=== PATIENT | female | born 1965 | race Caucasian/White ===

== ENCOUNTER 2020-12-04 10:08 | Outpatient (CLI) | payer OTHER ==
--- NOTE | 2020-12-04 12:20 | CARDIAC PROCEDURE NOTE ---
DATE OF SERVICE: 12/04/2020 Physician: Zuleyma Amaya MD, [facility] INDICATION: Screening for cardiovascular disease, family history of ischemic heart disease. CARDIAC RISK FACTORS: Postmenopausal status, family history of heart disease. PROCEDURE: After signing informed consent, the patient underwent a modified Bib-protocol treadmill stress test. No cardiac imaging was ordered with this test. RESTING HEART RATE: 98. PEAK HEART RATE: 158 (96% predicted maximum heart rate for age). RESTING BLOOD PRESSURE: 126/79. PEAK BLOOD PRESSURE: 234/69. The patient exercised for 9 minutes on a modified-Bib protocol treadmill stress test. She achieved a peak heart rate of 158 (96% PMHR) and 4.6 METs. There was no chest pain. There was mild shortness of breath. She rated her perceived exertion at 15/20 on the Breann scale at peak. Oxygen saturation was 94%-98% on room air throughout the test. RESTING EKG: Normal sinus rhythm, right axis deviation, RSR' in V1 and V2 (these changes suggest cor pulmonale), also there is T-wave flattening present in leads II, III, aVF, and V3 through V6. EKG AT PEAK: No new ST-segment or T-wave changes develop with exercise. SUMMARY: 1. Abnormal resting EKG. 2. ST-segment and T-wave changes during exercise are inaccurate in the presence of an abnormal resting EKG. 3. Abnormal vital signs: Extreme hypertensive response to exercise develops, and the patient was tachycardic at rest at 98. (The patient stated she had 2 cups of coffee this morning and also takes no blood pressure medications). IMPRESSION: 1. Probably normal stress test regarding ischemia, however, baseline EKG abnormalities are present. 2. Hypertension noted; possible untreated HTN present versus she has poor aerobic exercise tolerance. RECOMMENDATIONS: 1. Consider pulmonary evaluation and/or sleep study, given the EKG findings that suggest cor pulmonale; and the patient stated she probably has sleep apnea and has never been tested. 2. Consider high blood pressure management. 3. All future stress tests should be ordered with cardiac imaging (Echo or nuclear), since she has an abnormal resting EKG. cc: Skyler Lui DO TD: 12/04/2020 12:14 [facility]
== END 2020-12-04 10:09 | disposition home or self-care (01) ==
LOC: DI 10:08
PROVIDERS: ATTEND Family Medicine
DX: Z13.6 Encounter for screening for cardiovascular disorders (principal); Z82.49 Family history of ischemic heart disease and other diseases of the circulatory system; R94.31 Abnormal electrocardiogram [ECG] [EKG]

== ENCOUNTER 2020-12-08 08:20 | Outpatient (CLI) | payer OTHER ==
--- NOTE | 2020-12-16 12:22 | Mammography Report ---
BILATERAL DIGITAL SCREENING MAMMOGRAM 3D/2D WITH EXAGGERATED CC: 12/08/2020 CLINICAL: Routine screening. Additional films were requested but not obtained. There are scattered fibroglandular elements in bot h breasts. Reporting delay due to awaiting outside images for comparison. There are benign masses with a circumscribed margin in both breasts. No significant masses, calcifications, or other findings are seen in either breast. IMPRESSION: BENIGN There is no mammographic evidence of malignancy. A 1 year screening mammogram is recommended. This exam was interpreted at Station ID: [id number]. NOTE: For mammograms, a report in lay terms will be sent to the patient. Approximately 15% of breast malignancies will not be visualized mammographically. In the management of a palpable breast mass, a negative mammogram must not discourage biopsy of a clinically suspicious lesion. Electronically Signed By: Scott stein/barbara:12/15/2020 12:16:47 ACR BI-RADS Category 2: Benign Finding(s) 3342F PARENCHYMAL PATTERN: (A) - The breast(s) demonstrate(s) scattered fibroglandular densities. BI-RADS CATEGORY: (2) - 2 RECOMMENDATION: (ANNUAL) - Recommend routine annual screening mammography. [id number] 1 year screening LATERALITY: (B)
== END 2020-12-08 08:21 | disposition home or self-care (01) ==
LOC: DI.S 08:20
PROVIDERS: ATTEND Family Medicine
DX: Z12.31 Encounter for screening mammogram for malignant neoplasm of breast (principal)

== ENCOUNTER 2020-12-18 09:20 | Outpatient (CLI) | payer OTHER | END 2020-12-18 09:21 | disposition home or self-care (01) | LOC: RT 09:20 | PROVIDERS: ATTEND Family Medicine | DX: I10 Essential (primary) hypertension (principal); R68.89 Other general symptoms and signs | CPT/HCPCS: 94010 ==

== ENCOUNTER 2020-12-23 13:01 | Outpatient (CLI) | payer OTHER ==
[2020-12-23 13:44] VITALS: BP 114/76
--- NOTE | 2020-12-23 13:44 | SLEEP CARE CONSULTATION ---
Information from patient questionnaire entered by Kerline Todd. I have reviewed and concur with the information entered by Kerline Tdod. This document represents the service I personally performed and the decisions made by me, Bharti Villanueva ARNP. History of Present Illness Service Date and Time: 12/23/2020 1301 Reason for Visit: New patient Chief Complaint: reports: Unrefreshed sleep, Snoring, Excessive daytime sleepiness, Observed pauses in breathing, Fatigue Date of Onset: Years Usual bedtime: 9-elsi Time it takes to fall asleep: I take 2 Tylenol PM to fall asleep Snores at night: Yes Observed to quit breathing while asleep: Yes Sleeps alone due to snoring: No Number of times waking at night: 1-2 Reasons for waking at night: reports: Snoring, Other (Pets). denies: Choking, Gasping for air Toss, Turn, or Twitch while sleeping: Yes Recalls having dreams: Yes Usually gets out of bed at: 5 AM Feels refreshed in the morning: No Morning headache: Yes (Varies;1-2 days a week lasting most of morning) Sleepy or fatigued during the day: Yes Ever fallen asleep while driving: No Takes day naps: Yes (2-3 times week for about 20 minutes to 1 hour or so) Dreams during day naps: Yes (sometimes) Prior sleep studies: No Additional HPI information: I had the pleasure of seeing ROSITA FLOWERS today regarding the possibility of her having a sleep disorder. Her current complaints are excessive daytime sleepiness, observed pauses in breathing, snoring, fatigue and unrefreshed sleep. She states she is always tired and has been snoring for years. Her has seen pauses in breathing when she is asleep. She has woken her self up snoring and some times woke up after snoring heavily with a catch in her throat. She denies gasping or choking in her sleep. She states she does occasionally gasp while awake for no apparent reason. She has tachycardia and her PCP has been sending her for tests to evaluate her for causes. She states she has already had a respiratory evaluation that was clear and is waiting to get a stress test for her heart. She states her is on a CPAP and she is familiar with CPAP therapy. Both of her parents snored but were never diagnosed with sleep apnea. 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 Patient is and lives in [place]. Have you smoked in the past 12 months: No Cigarettes per day (20/pack): 15 Years of smokin Quit date: 1993 Smoking Pack Years: 7.0 Alcohol use: Yes Alcohol amount and frequency: 1-2 drinks occasionally Caffeine use: Yes Caffeine amount and frequency: 2 cups coffee in the morning Family History Family Hx Sleep Apnea: Mother: Snoring, Father: Snoring Allergies and Home Medications Drug allergies reviewed: Yes (NKDA) Home medication list reviewed: Yes Allergy and home medication list: Effexor ER 150mg Lisinopril 10 mg Tagamet Vitamin D Flonase Review of Systems Weight gain over past 5 years: 25 Cardiovascular: reports: high blood pressure, irregular heart rate or pulse Gastrointestinal: reports: heartburn, diarrhea Psychiatric: reports: anxiety, depression Ear/Nose/Throat: reports: sinus problems, tonsillectomy, wisdom teeth removed Musculoskeletal: reports: back pain Immunologic: reports: allergies to food or environment (possibly hayfever) Physical Exam Blood Pressure: 114/76 Cuff size: wrist Heart Rate: 104 O2 Saturation: 96 Height: 5 ft 8 in Weight: 196 lb Body Mass Index: 29.7 BMI Classification: Overweight Nostrils: patent to airflow Mouth and throat: narrow oropharynx Soft palate: long Hard palate: normal Uvula: normal Uvula visualization: 50% Mallampati Class II Tongue: normal in size Tonsils: absent bilaterally Chin and jaw: normal size and position Neck: normal w/o lymphadenopathy or thyromegaly Heart: regular rate and rhythm Impression and Plan 1. Suspected Obstructive Sleep Apnea-Hypopnea Syndrome, as suggested by a history of loud and irregular snoring, observed cessation of breath while asleep, morning headache, unrefreshed sleep, cognitive impairment, and excessive daytime sleepiness. Narrow oropharynx and obesity are common predisposing factors for obstructive sleep apnea-hypopnea syndrome. I recommend proceeding to polysomnography to confirm the diagnosis and to assess severity. If the patient has significant sleep disordered breathing, a manual CPAP titration study will also be performed to find the optimal treatment pressure. I informed the patient of what the sleep studies involve and after some discussion, obtained agreement to proceed. The pathophysiology of obstructive sleep apnea-hypopnea syndrome was discussed with the patient and health risks of cardiovascular and cerebrovascular disease if not treated. Risks of drowsy driving discussed in detail and patient advised to avoid long distance driving and to harness puller at the first sign of drowsiness. Patient agreed to plan. * Schedule polysomnography +- manual CPAP titration study and return in 1-2 weeks after the study to discuss result and initiate therapy. * Avoid long distance driving or driving when feeling sleepy. * Avoid alcohol, sedative and muscle relaxant around bedtime. * Attempt to lose weight. * Review instructions provided by trained office staff on how to prepare for the sleep study. * Return for follow-up after sleep study completed. Counseling Topics: Weight loss health impact Visit Type: In Office Time Spent with Patient (minutes): 31 Provider Statement: I spent 100% of the Face to Face Visit with the patient with greater than 50% spent counseling the patient and coordination of care.
== END 2020-12-23 13:02 | disposition home or self-care (01) ==
LOC: SC 13:01
PROVIDERS: ATTEND Nurse Practitioner Family
DX: G47.10 Hypersomnia, unspecified (principal); R06.81 Apnea, not elsewhere classified; R53.83 Other fatigue; G47.8 Other sleep disorders; R06.83 Snoring; Z87.891 Personal history of nicotine dependence; E66.3 Overweight; Z68.29 Body mass index [BMI] 29.0-29.9, adult
CPT/HCPCS: 99203; 99212

== ENCOUNTER 2021-01-14 07:41 | Outpatient (CLI) | payer OTHER | END 2021-01-14 07:42 | disposition home or self-care (01) | LOC: DI 07:41 | PROVIDERS: ATTEND Family Medicine | DX: I10 Essential (primary) hypertension (principal); R94.31 Abnormal electrocardiogram [ECG] [EKG]; Z82.49 Family history of ischemic heart disease and other diseases of the circulatory system | CPT/HCPCS: 93306 ==

== ENCOUNTER 2023-01-18 09:38 | Outpatient (CLI) | payer BC ==
--- NOTE | 2023-01-18 19:56 | DEXA Report ---
PROCEDURE: Dexa Spine and/or Hip INDICATIONS: POST MENOPAUSAL TECHNIQUE: Dual energy x-ray absorptiometry (DXA) was performed on a [employer] System. Regions measur ed are the AP Spine, femoral neck, and if needed forearm. COMPARISON: Postmenopausal. FINDINGS: Lumbar Spine: Bone Mineral Density 1.176 g/cm/cm, T score 0.0. Normal Left Femoral Neck: Bone Mineral Density 1.073 g/cm/cm, T score 0.3. Normal Left Hip: Bone Mineral Density 1.110 g/cm/cm, T score 0.8. Normal (T score greater or equal to -1.0: NORMAL) (T score from -1.1 to -2.4: OSTEOPENIA) (T score less than or equal to -2.5 to: OSTEOPOROSIS) Impression: By WHO criteria, this patient has normal bone density. Patients with diagnosis of osteoporosis or osteopenia should have regular bone mineral density assess ment. For those eligible for Medicare, routine testing is allowed once every 2 years. Testing frequ ency can be increased for patients who have rapidly progressing disease or for those who are receivin g medical therapy to restore bone mass. Reviewed by: Chucky Tipton MD on 01/18/2023 7:55 PM PDT Approved by: Chucky Tipton MD on 01/18/2023 7:55 PM PDT Station ID: [id number]
== END 2023-01-18 09:39 | disposition home or self-care (01) ==
LOC: DI 09:38
PROVIDERS: ATTEND Nurse Practitioner Family
DX: Z78.0 Asymptomatic menopausal state (principal)

== ENCOUNTER 2023-05-20 13:09 | Outpatient (CLI) | payer BC ==
[2023-05-20 20:35] LABS: THYROID STIMULATING HORMONE 1.47 uIU/mL (0.34-5.60)
== END 2023-05-20 13:10 | disposition home or self-care (01) ==
LOC: LAB.S 13:09
PROVIDERS: ATTEND Naturopath
DX: F90.0 Attention-deficit hyperactivity disorder, predominantly inattentive type (principal); N95.1 Menopausal and female climacteric states; R41.9 Unspecified symptoms and signs involving cognitive functions and awareness; R06.83 Snoring
CPT/HCPCS: 36415; 82607; 84439; 84443; 84481

== ENCOUNTER 2023-07-13 13:47 | Outpatient (CLI) | payer BC | END 2023-07-13 13:48 | disposition home or self-care (01) | LOC: LAB.S 13:47 | PROVIDERS: ATTEND Naturopath | DX: F90.0 Attention-deficit hyperactivity disorder, predominantly inattentive type (principal); E53.8 Deficiency of other specified B group vitamins; R41.9 Unspecified symptoms and signs involving cognitive functions and awareness | CPT/HCPCS: 36415; 82607 ==

== ENCOUNTER 2023-09-08 11:21 | Outpatient (CLI) | payer BC ==
[2023-09-09 07:10] LABS: ESTRADIOL 21.4 pg/mL (.); PROGESTERONE 0.6 ng/mL (.)
== END 2023-09-08 11:22 | disposition home or self-care (01) ==
LOC: LAB.S 11:21
PROVIDERS: ATTEND Naturopath
DX: N95.1 Menopausal and female climacteric states (principal)
CPT/HCPCS: 36415; 82670; 84144